=== PATIENT | female | born 1940 | race Caucasian/White ===

== ENCOUNTER 2018-10-14 18:09 | Inpatient (IN) | payer MEDICARE ==
[~2018-10-14] VITALS: Ht 170.2 cm; Wt 134.3 kg
[2018-10-14] MEDS ORDERED: normal saline 1000ML IV soln IVB ONE (20:10)
[2018-10-14] MEDS ORDERED: CefTRIAXone 2gm/D5W 50ml 50 ML IV ONE (20:10)
[2018-10-14] MEDS ORDERED: TETanus/Pertussis (Acell)/Diphther VAC/PF (Tdap-Adult) 0.5ml syringe IM ONE (20:15)
[2018-10-14 20:56] LABS: BASOPHILS # (AUTO) 0.1 X10'3 (0-0.2); EOSINOPHILS # (AUTO) 0.8 X10'3 (0-0.9); HEMOGLOBIN 11.4 g/dl (12.0-16.0); MEAN PLATELET VOLUME 7.6 FL (7.4-10.4); PLATELET COUNT 327 X10'3 (140-440)
[2018-10-14 20:58] LABS: BASOPHILS % (AUTO) 1.1 % (0-1); EOSINOPHILS % (AUTO) 6.8 % (0-6); HEMATOCRIT 34.1 % (35.0-45.0); LYMPHOCYTES # (AUTO) 1.4 X10'3 (1.1-4.8); LYMPHOCYTES % (AUTO) 12.2 % (21-51); MEAN CORPUSCULAR HEMOGLOBIN 29.5 PG (27.0-31.0); MEAN CORPUSCULAR HGB CONC 33.5 g/dL (33.0-36.5); MONOCYTES # (AUTO) 1.1 X10'3 (0-0.9); MONOCYTES % (AUTO) 9.7 % (2-12); NEUTROPHILS % (AUTO) 70.2 % (42-75); RED BLOOD COUNT 3.87 X10'6 (4.20-5.60); RED CELL DISTRIBUTION WIDTH 13.5 % (11.5-14.5); WHITE BLOOD COUNT 11.5 X10'3 (4.5-11.0)
[2018-10-14 21:24] LABS: ALANINE AMINOTRANSFERASE 17 U/L (12-78); ALBUMIN 2.9 G/DL (3.4-5.0); ALBUMIN/GLOBULIN RATIO 0.5 (1.1-1.5); ALKALINE PHOSPHATASE 95 IU/L (46-116); ANION GAP 5 (8-16); ASPARTATE AMINO TRANSFERASE 14 U/L (10-37); BILIRUBIN,TOTAL 0.3 MG/DL (0.1-1.0); BLOOD UREA NITROGEN 21 MG/DL (7-18); BUN/CREATININE RATIO 18.6 (6.6-38.0); CHLORIDE 102 MMOL/L (99-107); CREATININE 1.13 MG/DL (0.40-0.90); GLUCOSE 140 MG/DL (70-104); MAGNESIUM 2.3 MG/DL (1.5-2.4); POTASSIUM 3.9 MMOL/L (3.5-5.1); SODIUM 139 MMOL/L (135-145); TOTAL CARBON DIOXIDE 32.2 MMOL/L (24-32); TOTAL PROTEIN 8.6 G/DL (6.4-8.2); eGFR 46 ML/MIN
[2018-10-14 22:34] LABS: PARTIAL THROMBOPLASTIN TIME 29 SECONDS (22-32)
[2018-10-14] MEDS ORDERED: ondansetron/PF 4mg/2ml inj IV PRN (22:40)
[2018-10-14] MEDS ORDERED: magnesium hydroxide 30ml (MOM) UD suspension PO PRN (22:40)
[2018-10-14] MEDS ORDERED: mag hydrox/Alum hydrox/simeth 30ml oral suspension PO PRN (22:40)
[2018-10-14] MEDS ORDERED: acetaminophen 325mg tablet PO PRN (22:40)
[2018-10-14] MEDS ORDERED: insulin Lispro (HumaLOG) vial - multi-dose SQ SCH (22:50)
[2018-10-14] MEDS ORDERED: glucagon, human recombinant 1mg kit SUBCUT PRN (22:50)
[2018-10-14] MEDS ORDERED: dextrose 50%-water 50ml dispensing syringe IV PRN ×2 (22:50)
[2018-10-14] MEDS ORDERED: dextrose ORAL solution 15 GM/59 ML bottle PO PRN ×2 (22:50)
[2018-10-14] MEDS ORDERED: MESSAGE TO PHARMACY PO ONE (22:50)
[2018-10-14] MEDS ORDERED: LOSA25TA96 PO (22:56)
[2018-10-14] MEDS ORDERED: XAL0.005OS OP (22:56)
[2018-10-14] MEDS ORDERED: GABA600T PO (22:56)
[2018-10-14] MEDS ORDERED: CYAN25003 PO (22:56)
[2018-10-14] MEDS ORDERED: LEVO125T PO (22:56)
[2018-10-14] MEDS ORDERED: DOCU-148 PO (22:56)
[2018-10-14] MEDS ORDERED: HYDR12.5 PO (22:56)
[2018-10-14] MEDS ORDERED: HYDR-4353 PO (22:56)
[2018-10-14] MEDS ORDERED: FURO-150 PO (22:56)
[2018-10-14] MEDS ORDERED: ATOR40TA PO (22:56)
[2018-10-14] MEDS ORDERED: HYDROcodone/acetaminophen 10/325mg tab PO PRN (23:00)
[2018-10-14 23:30] VITALS: BP 185/72
--- NOTE | 2018-10-14 23:30 | NUR ---
Patient arrived to floor with all belongings (glasses and clothing). Pt in stable condition. Pt BP of 185/72, HR of 77. Vivian DOSS notified of BP, no new orders. Pt bed changed, pt cleaned up, and tucked into bed.
[2018-10-15 01:20] VITALS: BP 160/83
[2018-10-15] MEDS: clindamycin 300mg/D5W 50mL 50 ML IV SCH ×4 (01:44→20:39)
[2018-10-15 06:04] LABS: BASOPHILS # (AUTO) 0.1 X10'3 (0-0.2); BASOPHILS % (AUTO) 0.9 % (0-1); EOSINOPHILS # (AUTO) 0.6 X10'3 (0-0.9); EOSINOPHILS % (AUTO) 6.9 % (0-6); HEMATOCRIT 31.2 % (35.0-45.0); HEMOGLOBIN 10.4 g/dl (12.0-16.0); LYMPHOCYTES # (AUTO) 1.3 X10'3 (1.1-4.8); LYMPHOCYTES % (AUTO) 14.8 % (21-51); MEAN CORPUSCULAR HEMOGLOBIN 29.6 PG (27.0-31.0); MEAN CORPUSCULAR HGB CONC 33.3 g/dL (33.0-36.5); MEAN CORPUSCULAR VOLUME 88.9 FL (78-98); MEAN PLATELET VOLUME 7.7 FL (7.4-10.4); MONOCYTES # (AUTO) 1.2 X10'3 (0-0.9); NEUTROPHILS # (AUTO) 5.7 X10'3 (1.8-7.7); NEUTROPHILS % (AUTO) 64.4 % (42-75); PLATELET COUNT 313 X10'3 (140-440); RED BLOOD COUNT 3.51 X10'6 (4.20-5.60); RED CELL DISTRIBUTION WIDTH 13.7 % (11.5-14.5); WHITE BLOOD COUNT 8.8 X10'3 (4.5-11.0)
--- NOTE | 2018-10-15 06:26 | NUR ---
Problems reprioritized. Patient report given, questions answered & plan of care reviewed with Fernando ALLEN.
[2018-10-15 06:29] LABS: ALANINE AMINOTRANSFERASE 13 U/L (12-78); ALBUMIN 2.6 G/DL (3.4-5.0); ALBUMIN/GLOBULIN RATIO 0.5 (1.1-1.5); ALKALINE PHOSPHATASE 80 IU/L (46-116); ANION GAP 7 (8-16); ASPARTATE AMINO TRANSFERASE 13 U/L (10-37); BILIRUBIN,TOTAL 0.2 MG/DL (0.1-1.0); BLOOD UREA NITROGEN 20 MG/DL (7-18); BUN/CREATININE RATIO 20.2 (6.6-38.0); CALCIUM 8.6 MG/DL (8.5-10.1); CHLORIDE 104 MMOL/L (99-107); CREATININE 0.99 MG/DL (0.40-0.90); GLUCOSE 129 MG/DL (70-104); POTASSIUM 3.6 MMOL/L (3.5-5.1); SODIUM 141 MMOL/L (135-145); TOTAL CARBON DIOXIDE 29.7 MMOL/L (24-32); TOTAL PROTEIN 7.6 G/DL (6.4-8.2); eGFR 54 ML/MIN
--- NOTE | 2018-10-15 06:57 | NUR ---
Patient in room [facility]. I have received report from Jacobo ALLEN and had the opportunity to ask questions and assume patient care.
[2018-10-15 07:02] VITALS: BP 165/63
[2018-10-15] MEDS: cyanocobalamin 500mcg tablet PO SCH (09:40)
[2018-10-15] MEDS: levoTHYROXINE 125mcg tablet PO SCH (09:41)
[2018-10-15] MEDS: ciprofloxacin 250mg tablet PO SCH ×2 (09:41→20:41)
[2018-10-15] MEDS: docusate sod 100mg capsule PO SCH (09:41)
[2018-10-15] MEDS: HYDROchlorothiazide 12.5mg capsule PO SCH (09:41)
[2018-10-15] MEDS: atorvastatin 20mg tablet PO SCH (09:41)
[2018-10-15] MEDS: losartan 25mg tablet PO SCH (09:42)
[2018-10-15] MEDS: gabapentin 300mg capsule PO SCH ×3 (09:42→20:41)
[2018-10-15] MEDS: latanoprost 0.005% 2.5ml ophthalmic drops EACHEYE SCH ×2 (09:42→20:41)
[2018-10-15] MEDS: heparin, porcine 5000 units/ml vial SQ SCH ×2 (09:43→20:41)
[2018-10-15] MEDS: furosemide 20MG tablet PO SCH (09:44)
[2018-10-15 11:25] VITALS: BP 144/60
--- NOTE | 2018-10-15 15:57 | NUR ---
DM consult: Pt with A1c 7.2 seen at bedside provided with written DM ed with referral to outpatient DM class. Pt reports she doesn't take any DM meds and DM management is solely controlled with diet. Pt admit with bilateral venous stasis disease and a laceration on the left heel. Pt provided with written and verbal protein education. Pt agreeable to yogurt with breakfast and dinner and cottage cheese with lunch. Pt reports some difficulty chewing d/t missing teeth. States she has dentures but couldn't get them in. Pt agreeable to soft to chew, chop all. Pt also requests 2 hard boiled eggs or omelettes for breakfast d/t not liking scrambled eggs. All food requests d/w dietary. Pt states she takes stool softeners at home and LBM 10/15. RD contact information provided. Will continue to follow. Addendum: 10/15/18 at [address] Amended: Links added.
[2018-10-15 18:00] VITALS: BP 123/66
--- NOTE | 2018-10-15 18:05 | NUR ---
Patient in room [facility]. I have received report from Koffi ALLEN and had the opportunity to ask questions and assume patient care.
--- NOTE | 2018-10-15 18:30 | NUR ---
Problems reprioritized. Patient report given, questions answered & plan of care reviewed with Kirstin ALLEN.
[2018-10-15] MEDS: lactobacillus rhamnosus 10,000 MMU CELLS/CAPSULE PO SCH (20:41)
[2018-10-15] MEDS ORDERED: insulin glargine (Lantus) pen - multi-dose SQ SCH (21:00)
[2018-10-16] VITALS: BP 149/48
[2018-10-16] MEDS: clindamycin 300mg/D5W 50mL 50 ML IV SCH ×3 (01:59→14:00)
[2018-10-16 05:20] LABS: BASOPHILS # (AUTO) 0.1 X10'3 (0-0.2); BASOPHILS % (AUTO) 0.9 % (0-1); EOSINOPHILS # (AUTO) 0.6 X10'3 (0-0.9); EOSINOPHILS % (AUTO) 7.1 % (0-6); HEMATOCRIT 33.8 % (35.0-45.0); LYMPHOCYTES # (AUTO) 1.3 X10'3 (1.1-4.8); LYMPHOCYTES % (AUTO) 16.2 % (21-51); MEAN CORPUSCULAR HEMOGLOBIN 29.1 PG (27.0-31.0); MEAN CORPUSCULAR HGB CONC 32.7 g/dL (33.0-36.5); MEAN CORPUSCULAR VOLUME 89.2 FL (78-98); MEAN PLATELET VOLUME 7.6 FL (7.4-10.4); MONOCYTES # (AUTO) 0.9 X10'3 (0-0.9); NEUTROPHILS # (AUTO) 5.1 X10'3 (1.8-7.7); NEUTROPHILS % (AUTO) 64.8 % (42-75); PLATELET COUNT 311 X10'3 (140-440); RED BLOOD COUNT 3.78 X10'6 (4.20-5.60); RED CELL DISTRIBUTION WIDTH 13.8 % (11.5-14.5); WHITE BLOOD COUNT 7.8 X10'3 (4.5-11.0)
[2018-10-16 05:56] LABS: ALANINE AMINOTRANSFERASE 13 U/L (12-78); ALBUMIN 2.7 G/DL (3.4-5.0); ALBUMIN/GLOBULIN RATIO 0.5 (1.1-1.5); ALKALINE PHOSPHATASE 85 IU/L (46-116); ANION GAP 9 (8-16); ASPARTATE AMINO TRANSFERASE 14 U/L (10-37); BILIRUBIN,TOTAL 0.3 MG/DL (0.1-1.0); BLOOD UREA NITROGEN 16 MG/DL (7-18); BUN/CREATININE RATIO 15.7 (6.6-38.0); CALCIUM 8.8 MG/DL (8.5-10.1); CHLORIDE 102 MMOL/L (99-107); CREATININE 1.02 MG/DL (0.40-0.90); GLUCOSE 133 MG/DL (70-104); POTASSIUM 3.7 MMOL/L (3.5-5.1); SODIUM 139 MMOL/L (135-145); TOTAL PROTEIN 8.1 G/DL (6.4-8.2); eGFR 52 ML/MIN
--- NOTE | 2018-10-16 06:27 | NUR ---
Problems reprioritized. Patient report given, questions answered & plan of care reviewed with Koffi RN.
--- NOTE | 2018-10-16 06:49 | NUR ---
Patient in room [facility]. I have received report from Kirstin ALLEN and had the opportunity to ask questions and assume patient care.
[2018-10-16 07:43] VITALS: BP 162/74
[2018-10-16] MEDS: docusate sod 100mg capsule PO SCH (08:15)
[2018-10-16] MEDS: furosemide 20MG tablet PO SCH (08:15)
[2018-10-16] MEDS: ciprofloxacin 250mg tablet PO SCH (08:15)
[2018-10-16] MEDS: levoTHYROXINE 125mcg tablet PO SCH (08:16)
[2018-10-16] MEDS: lactobacillus rhamnosus 10,000 MMU CELLS/CAPSULE PO SCH (08:16)
[2018-10-16] MEDS: HYDROchlorothiazide 12.5mg capsule PO SCH (08:16)
[2018-10-16] MEDS: atorvastatin 20mg tablet PO SCH (08:17)
[2018-10-16] MEDS: losartan 25mg tablet PO SCH (08:17)
[2018-10-16] MEDS: gabapentin 300mg capsule PO SCH ×2 (08:17→13:13)
[2018-10-16] MEDS: cyanocobalamin 500mcg tablet PO SCH (08:18)
[2018-10-16] MEDS: latanoprost 0.005% 2.5ml ophthalmic drops EACHEYE SCH (08:19)
[2018-10-16] MEDS: heparin, porcine 5000 units/ml vial SQ SCH (08:19)
[2018-10-16] MEDS ORDERED: CIPR-259 PO (09:28)
[2018-10-16] MEDS ORDERED: CEPH250T PO (09:28)
[2018-10-16 11:00] VITALS: BP 117/63
--- NOTE | 2018-10-16 15:00 | NUR ---
Patient discharged today. Discharge teaching and new medication were gone over with patient. Patient expressed verbal understanding of teaching. Patient IV was taken out at the time of discharge, as well as the patient holland catheter. Patient was taken to lobby via wheel chair where she was transported home via private vehicle. Patient is to follow up with wound care clinic for heal wound and patient is to follow up with primary care provider,
[2018-10-18] MEDS ORDERED: gadopentetate dimeglumine 10 MMOL/20 ML syringe IV ONE (12:00)
== END 2018-10-16 14:29 | disposition home or self-care (01) | DRG 603 ==
LOC: ER 18:09 → SUR 3N 22:47
PROVIDERS: ADMIT Internal Medicine; ATTEND Internal Medicine
DX: L03.115 Cellulitis of right lower limb (principal); L97.429 Non-pressure chronic ulcer of left heel and midfoot with unspecified severity; E11.621 Type 2 diabetes mellitus with foot ulcer; L03.116 Cellulitis of left lower limb; E11.622 Type 2 diabetes mellitus with other skin ulcer; Z66 Do not resuscitate; E78.00 Pure hypercholesterolemia, unspecified; I10 Essential (primary) hypertension; I87.8 Other specified disorders of veins; Z85.3 Personal history of malignant neoplasm of breast; Z87.891 Personal history of nicotine dependence; Z88.8 Allergy status to other drugs, medicaments and biological substances; Z90.710 Acquired absence of both cervix and uterus
CPT/HCPCS: 36415; 71045; 73630; 73723; 80053; 82948; 83036; 83605; 83735; 84145; 85025; 85610; 85730; 87040; 87081; 90471; 93005; 96365; 97162; 97530; 99285; A9579; G0378; J0696; J1644; J1815; J3490